=== PATIENT | female | born 1935 | race Caucasian/White ===

== ENCOUNTER 2016-08-14 02:17 | Emergency (ER) | payer MEDICARE, OTHER ==
[~2016-08-14] VITALS: Ht 172.7 cm; Wt 68.0 kg
[~2016-08-14 02:17] MED LIST: ALPR-475 PO; ASA; CALC500T47; CHOL400C; RED600TA PO; UBID100C; VITA1TAB19 PO
[2016-08-14] MEDS ORDERED: APIX2.5T PO (03:45)
[2016-08-14 04:03] VITALS: BP 145/82
== END 2016-08-14 04:03 | disposition home or self-care (01) ==
LOC: ED 03:50
DX: R04.0 Epistaxis (principal); I10 Essential (primary) hypertension
CPT/HCPCS: 36415; 85025; 99283

== ENCOUNTER 2016-08-17 05:13 | Inpatient (IN) | payer MEDICARE, OTHER ==
[~2016-08-17] VITALS: Ht 172.7 cm; Wt 53.6 kg
[~2016-08-17 05:13] MED LIST changes: +APIX2.5T PO; -CALC500T47; +CALC500T47 PO; -CHOL400C; +CHOL400C PO
[2016-08-17] MEDS ORDERED: PHENYLEPHRINE NASAL 1%, 15ML SPRAY ONE (05:16)
[2016-08-17] MEDS ORDERED: LIDOCAINE 1%, 20ML ONE (05:16)
[2016-08-17] MEDS ORDERED: LISI-170 PO (05:29)
[2016-08-17] MEDS ORDERED: OMEP20TA62 PO (05:29)
[2016-08-17 06:10] LABS: BLOOD UREA NITROGEN 15 mg/dL (7-18)
[2016-08-17 06:11] LABS: IS PT STATUS REG ER OR PRE ER? YES
[2016-08-17] MEDS ORDERED: NITROGLYCERIN 0.4 MG BOTTLE (25 TABS) SL PRN (07:00)
[2016-08-17] MEDS ORDERED: DOCUSATE 100 MG CAPSULE PO PRN (07:00)
[2016-08-17] MEDS ORDERED: morphine SULFATE 10 MG/ML, 1ML IVPush PRN (07:00)
[2016-08-17] MEDS ORDERED: LABETALOL 5MG/ML 40ML VIAL IVPush PRN (07:00)
[2016-08-17] MEDS ORDERED: POLYETHYLENE GLYCOL 17 GM PACKET PO PRN (07:00)
[2016-08-17] MEDS ORDERED: ACETAMINOPHEN 325 MG TABLET PO PRN (07:00)
[2016-08-17] MEDS ORDERED: BISACODYL 10 MG SUPP PR PRN (07:00)
[2016-08-17 08:00] VITALS: BP 138/81
[2016-08-17] MEDS ORDERED: TEMPLATE NON-FORMULARY MED. (Red Yeast Rice** 600 MG) PO SCH (09:00)
[2016-08-17] MEDS: SODIUM CHLORIDE FLUSH 3ML SYRINGE IVF SCH ×2 (09:00→19:43)
[2016-08-17] MEDS: LISINOPRIL 20 MG TABLET PO SCH (10:18)
[2016-08-17] MEDS: OMEPRAZOLE 20 MG CAPSULE.DR PO SCH (10:18)
[2016-08-17 12:53] LABS: IS PT STATUS REG ER OR PRE ER? NO
[2016-08-17 13:27] VITALS: BP 120/68
[2016-08-17] MEDS ORDERED: POTASSIUM CHLORIDE 20 MEQ TAB.ER.PRT PO ONE (17:00)
[2016-08-17] MEDS ORDERED: FUROSEMIDE 20 MG TABLET PO ONE (17:00)
[2016-08-17] MEDS: CARVEDILOL 3.125 MG TABLET PO SCH (17:53)
[2016-08-17 18:36] LABS: IS PT STATUS REG ER OR PRE ER? NO
[2016-08-17 19:06] VITALS: BP 149/79
[2016-08-17] MEDS: ONDANSETRON 2MG/ML, 2ML IVPush PRN (21:47)
[2016-08-18 01:39] VITALS: BP 118/79
[2016-08-18 05:10] VITALS: BP 128/68
[2016-08-18] MEDS: CARVEDILOL 3.125 MG TABLET PO SCH (05:12)
[2016-08-18 05:41] LABS: ASPARTATE AMINO TRANSFERASE 21 U/L (15-37); BLOOD UREA NITROGEN 10 mg/dL (7-18)
[2016-08-18 07:18] VITALS: BP 109/66
[2016-08-18] MEDS ORDERED: REGADENOSON 0.4 MG/5 ML SYRINGE ONE (08:54)
[2016-08-18] MEDS: SODIUM CHLORIDE FLUSH 3ML SYRINGE IVF SCH ×2 (09:00→21:46)
[2016-08-18] MEDS: OMEPRAZOLE 20 MG CAPSULE.DR PO SCH (10:48)
[2016-08-18] MEDS: LISINOPRIL 20 MG TABLET PO SCH (10:48)
[2016-08-18] MEDS ORDERED: FUROSEMIDE 20 MG TABLET PO ONE (13:30)
[2016-08-18] MEDS ORDERED: POTASSIUM CHLORIDE 20 MEQ TAB.ER.PRT PO ONE (13:30)
[2016-08-18 15:51] VITALS: BP 122/71
[2016-08-18] MEDS: AMOXICILLIN 500 MG CAPSULE PO SCH ×2 (17:35→21:47)
[2016-08-18] MEDS: CARVEDILOL 6.25 MG TABLET PO SCH (17:36)
[2016-08-18 19:16] VITALS: BP 104/62
[2016-08-19 01:49] VITALS: BP 135/89
[2016-08-19] MEDS: CARVEDILOL 6.25 MG TABLET PO SCH (04:58)
[2016-08-19 05:56] LABS: BLOOD UREA NITROGEN 11 mg/dL (7-18)
[2016-08-19 07:52] VITALS: BP 104/68
[2016-08-19] MEDS: AMOXICILLIN 500 MG CAPSULE PO SCH (08:33)
[2016-08-19] MEDS: OMEPRAZOLE 20 MG CAPSULE.DR PO SCH (08:35)
[2016-08-19] MEDS: LISINOPRIL 20 MG TABLET PO SCH (08:35)
[2016-08-19] MEDS: SODIUM CHLORIDE FLUSH 3ML SYRINGE IVF SCH (08:36)
[2016-08-19] MEDS ORDERED: AMOX-291 PO (10:45)
[2016-08-19] MEDS ORDERED: CARV6.2512 PO (10:45)
[2016-08-19] MEDS ORDERED: ONDA4TAB10 PO (11:10)
[2016-08-19] MEDS: ONDANSETRON 2MG/ML, 2ML IVPush PRN (11:12)
== END 2016-08-19 14:28 | disposition home or self-care (01) | DRG 813 ==
LOC: ED 05:49 → EDIP 06:16 → 5SO 08:13
PROVIDERS: ADMIT Internal Medicine
PROC: 2Y41X5Z Packing of Nasal Region using Packing Material (ICD-10-PCS; principal; 2016-08-17)
DX: D68.32 Hemorrhagic disorder due to extrinsic circulating anticoagulants (principal); I51.81 Takotsubo syndrome; D68.69 Other thrombophilia; E44.0 Moderate protein-calorie malnutrition; Z68.1 Body mass index [BMI] 19.9 or less, adult; R04.0 Epistaxis; F17.210 Nicotine dependence, cigarettes, uncomplicated; K21.9 Gastro-esophageal reflux disease without esophagitis; I48.2 Chronic atrial fibrillation; Z96.642 Presence of left artificial hip joint; Z79.82 Long term (current) use of aspirin; Z79.899 Other long term (current) drug therapy; Z80.0 Family history of malignant neoplasm of digestive organs; Z85.3 Personal history of malignant neoplasm of breast; Z90.12 Acquired absence of left breast and nipple; Z87.19 Personal history of other diseases of the digestive system; Z90.49 Acquired absence of other specified parts of digestive tract; Z88.5 Allergy status to narcotic agent; T45.515A Adverse effect of anticoagulants, initial encounter
CPT/HCPCS: 30901; 36415; 71010; 78452; 80048; 80053; 80061; 81001; 82040; 83735; 84439; 84443; 84484; 85018; 85025; 85379; 85610; 87086; 93005; 93017; 93306; J2405; J2785; A9502; C9898

== ENCOUNTER 2017-07-15 19:33 | Emergency (ER) | payer MEDICARE, OTHER ==
[~2017-07-15] VITALS: Ht 172.7 cm; Wt 57.5 kg
[~2017-07-15 19:33] MED LIST changes: +AMOX-291 PO; -CALC500T47 PO; +CALC500T51 PO; +CARV6.2512 PO; +LISI-170 PO; +OMEP20TA62 PO; +ONDA4TAB10 PO
[2017-07-15 20:45] LABS: BASOPHILS # (AUTO) 0.04 x10^3/uL (0-0.1); BASOPHILS % (AUTO) 1 % (0-1); EOSINOPHILS % (AUTO) 1 % (1-7); LYMPHOCYTES # (AUTO) 2.48 x10^3/uL (1-3.4); LYMPHOCYTES % (AUTO) 33 % (22-44); MD NO; MEAN CORPUSCULAR HEMOGLOBIN 31.2 pg (27.0-34.8); MEAN CORPUSCULAR HGB CONC 32.4 g/dL (32.4-35.8); MEAN CORPUSCULAR VOLUME 96.1 fL (80-100); MEAN PLATELET VOLUME 7.9 fL (7.4-10.4); MONOCYTES # (AUTO) 0.64 x10^3/uL (0.2-0.8); MONOCYTES % (AUTO) 9 % (2-9); NEUTROPHILS # (AUTO) 4.17 x10^3/uL (1.8-6.8); NEUTROPHILS % (AUTO) 56 % (42-75); PLATELET COUNT 354 x10^3/uL (130-400); RED BLOOD COUNT 4.28 x10^6/uL (3.82-5.3); RED CELL DISTRIBUTION WIDTH 16.4 % (9.6-15.2)
[2017-07-15 20:54] LABS: ANION GAP 7 mmol/L (5-15); CALCIUM 9.1 mg/dL (8.5-10.1); CHLORIDE 104 mmol/L (98-107); CREATININE 0.78 mg/dL (0.55-1.02)
[2017-07-15 22:02] VITALS: BP 163/96
== END 2017-07-15 22:03 | disposition home or self-care (01) ==
LOC: ED 21:48
DX: S39.011A Strain of muscle, fascia and tendon of abdomen, initial encounter (principal); I48.2 Chronic atrial fibrillation; I10 Essential (primary) hypertension; Y93.89 Activity, other specified; Y92.89 Other specified places as the place of occurrence of the external cause; Y99.8 Other external cause status; X58.XXXA Exposure to other specified factors, initial encounter; Z87.891 Personal history of nicotine dependence; Z79.01 Long term (current) use of anticoagulants; Z88.5 Allergy status to narcotic agent
CPT/HCPCS: 36415; 71046; 80048; 82040; 85025; 93005; 99285

== ENCOUNTER → 2018-06-23 | Outpatient (CLI) | payer MEDICARE, OTHER | END | disposition home or self-care (01) | LOC: CFH 13:01 | PROVIDERS: ATTEND Internal Medicine Cardiovascular Disease | DX: I08.3 Combined rheumatic disorders of mitral, aortic and tricuspid valves (principal); I11.9 Hypertensive heart disease without heart failure; I48.2 Chronic atrial fibrillation; Z85.3 Personal history of malignant neoplasm of breast; Z87.891 Personal history of nicotine dependence | CPT/HCPCS: 93306 ==

== ENCOUNTER → 2019-07-30 | Outpatient (CLI) | payer MEDICARE, OTHER ==
[~2019-07-30] MED LIST changes: -ALPR-475 PO; +ALPR0.5T7 PO
== END | disposition home or self-care (01) ==
LOC: CFH 07:45
PROVIDERS: ATTEND Internal Medicine Cardiovascular Disease
DX: I08.8 Other rheumatic multiple valve diseases (principal); I48.91 Unspecified atrial fibrillation; I10 Essential (primary) hypertension
CPT/HCPCS: 93306

== ENCOUNTER 2019-08-04 07:41 | Outpatient (CLI) | payer MEDICARE, OTHER ==
[~2019-08-04 07:41] MED LIST changes: +REGADENOSON 0.4 MG/5 ML SYRINGE ONE
== END 2019-08-04 23:59 | disposition home or self-care (01) ==
LOC: CFH 07:41
PROVIDERS: ATTEND Physician Assistant Medical
DX: I25.89 Other forms of chronic ischemic heart disease (principal); I48.91 Unspecified atrial fibrillation; I10 Essential (primary) hypertension
CPT/HCPCS: 78452; 93017; A9502; J2785

== ENCOUNTER → 2020-10-05 | Outpatient (CLI) | payer MEDICARE ==
[~2020-10-05] MED LIST changes: -REGADENOSON 0.4 MG/5 ML SYRINGE ONE; -UBID100C; +UBID100C40
== END | disposition home or self-care (01) ==
LOC: CFH 09:40
PROVIDERS: ATTEND Internal Medicine Cardiovascular Disease
DX: I08.8 Other rheumatic multiple valve diseases (principal); I10 Essential (primary) hypertension; Z87.891 Personal history of nicotine dependence
CPT/HCPCS: 93306